=== PATIENT | male | born 1945 | race Caucasian/White ===

== ENCOUNTER → 2017-12-13 | Outpatient (CLI) | payer MEDICARE | END | disposition home or self-care (01) | LOC: OIH 13:20 | PROVIDERS: ATTEND Internal Medicine | DX: M47.26 Other spondylosis with radiculopathy, lumbar region (principal) | CPT/HCPCS: 72110 ==

== ENCOUNTER → 2020-04-14 | Outpatient (CLI) | payer MEDICARE | END | disposition home or self-care (01) | LOC: SHCH 14:39 | PROVIDERS: ATTEND Internal Medicine Cardiovascular Disease | DX: R60.0 Localized edema (principal) | CPT/HCPCS: 93970 ==

== ENCOUNTER 2020-05-23 10:00 | Observation (INO) | payer MEDICARE ==
[~2020-05-23] VITALS: Ht 182.9 cm; Wt 114.7 kg
[2020-05-23 09:46] VITALS: BP 158/78
[2020-05-23 11:09] LABS: BASOPHILS % (AUTO) 0.2 % (0.0-5.0); EOSINOPHILS % (AUTO) 1.9 % (0.0-8.0); HEMATOCRIT 41.8 % (42-54); LYMPHOCYTES % (AUTO) 18.1 % (21.0-51.0); MEAN CORPUSCULAR HEMOGLOBIN 32.4 pg (27.0-33.0); MEAN CORPUSCULAR VOLUME 95.4 fL (79-99); MONOCYTES % (AUTO) 9.8 % (3.0-13.0); NEUTROPHILS % (AUTO) 69.8 % (40.0-77.0); PLATELET COUNT (AUTO) 218 K/uL (130-400); RED BLOOD CELL COUNT(AUTO) 4.38 MIL/uL (4.50-6.20); RED CELL DISTRIBUTION WIDTH 12.8 % (11.0-15.5); WHITE BLOOD COUNT (AUTO) 5.2 K/uL (4.8-10.8)
[2020-05-23 12:24] LABS: CREATININE 1.8 mg/dL (0.5-1.5); POTASSIUM 4.5 mmol/L (3.5-5.1)
[2020-05-25] MEDS ORDERED: HYDR25TA PO (12:28)
[2020-05-25] MEDS ORDERED: DOCU-272 PO (12:28)
[2020-05-25] MEDS ORDERED: LOSA100T58 PO (12:28)
[2020-05-25] MEDS ORDERED: CHOL200013 PO (12:28)
[2020-05-25] MEDS ORDERED: KETO15CR2 TP (12:28)
[2020-05-25] MEDS ORDERED: GLIM4TAB36 PO (12:28)
[2020-05-25] MEDS ORDERED: HYDR100T27 PO (12:28)
[2020-05-25] MEDS ORDERED: NEBI10TA PO (12:28)
[2020-05-25] MEDS ORDERED: AMLO10TA7 PO (12:28)
[2020-05-25] MEDS ORDERED: AEC81 PO (12:28)
[2020-05-25] MEDS ORDERED: INSU100I3 SQ ×3 (12:28)
[2020-05-25] MEDS ORDERED: INSU100I24 SQ (12:28)
[2020-05-26] VITALS (25 sets, daily range): BP systolic 117–195; BP diastolic 44–82
[2020-05-26] MEDS ORDERED: SODIUM CHLORIDE 0.9% 1000ML 1,000 ML IV ONE (06:39)
[2020-05-26] MEDS ORDERED: CEFAZOLIN SODIUM 1 GM VIAL ONE ×2 (06:39→06:44)
[2020-05-26] MEDS ORDERED: BUPIVACAINE/EPI/PF 0.25% 30ML VIAL IJ ONE (06:44)
[2020-05-26] MEDS ORDERED: DURAMORPH PF1 MG/ML 10ML AMP IV ONE (06:44)
[2020-05-26] MEDS ORDERED: THROMBIN-JMI 20000 UNIT KIT TP ONE (06:44)
[2020-05-26] MEDS ORDERED: SCOPOLAMINE HYDROBROMIDE 1 EACH ADH..PATCH TD ONE (07:10)
[2020-05-26] MEDS ORDERED: LIDOCAINE PF 2% 5ML ABBOJECT ONE (07:14)
[2020-05-26] MEDS ORDERED: SUCCINYLCHOLINE CHLORIDE 20 MG/ML 10 ML VIAL ONE (07:14)
[2020-05-26] MEDS ORDERED: MIDAZOLAM HCL 1 MG/ML 2ML VIAL ONE (07:15)
[2020-05-26] MEDS ORDERED: GLYCOPYRROLATE 1 MG/5 ML SYRINGE ONE (07:15)
[2020-05-26] MEDS ORDERED: PROPOFOL 10 MG/ML 20ML VIAL IV ONE (07:15)
[2020-05-26] MEDS ORDERED: DEXAMETHASONE SOD PHOSPHATE 10MG/ML 1ML VIAL ONE (07:15)
[2020-05-26] MEDS ORDERED: NEOSTIGMINE 5MG/5ML SYR IV ONE (07:16)
[2020-05-26] MEDS ORDERED: FENTANYL CITRATE PF 50 MCG/1 ML 2ML VIAL ONE (07:16)
[2020-05-26] MEDS ORDERED: ROCURONIUM 10MG/1ML SYR 10 MG/ML ML ONE ×2 (07:16→08:15)
[2020-05-26] MEDS ORDERED: ONDANSETRON HCL 4 MG/2 ML VIAL ONE (07:16)
[2020-05-26] MEDS: CEFAZOLIN SODIUM 1 GM VIAL IVP ONE ×2 (07:16→07:40)
[2020-05-26] MEDS ORDERED: HETASTARCH IN 0.9 % NACL 500 ML IV ONE (07:51)
[2020-05-26] MEDS ORDERED: PHENYLEPHRINE HCL 10 MG/ML 1ML VIAL IV ONE (07:53)
[2020-05-26] MEDS ORDERED: EPHEDRINE SULFATE 50 MG/ML AMPULE ONE (07:53)
[2020-05-26] MEDS: LACTATED RINGERS 1000ML 1,000 ML IV SCH ×2 (12:07→23:22)
[2020-05-26] MEDS ORDERED: MORPHINE SULFATE 2 MG/ML 1ML SYG IVP PRN (12:15)
[2020-05-26] MEDS: CEFAZOLIN SODIUM 1 GM VIAL IVP SCH ×2 (12:15→21:19)
[2020-05-26] MEDS ORDERED: PROMETHAZINE HCL 25 MG/ML 1ML AMPULE IM PRN (12:15)
[2020-05-26] MEDS: DEXAMETHASONE SOD PHOSPHATE 4 MG/ML 1ML VIAL IVP SCH ×3 (12:15→23:41)
[2020-05-26] MEDS ORDERED: SODIUM CHLORIDE 0.9% 10 ML VIAL IVP PRN (12:15)
--- NOTE | 2020-05-26 13:35 | NUR ---
PROCEDURE REPORT RECEIVED FROM PABLITO RN (PACU). PATIENT S/P LUMBAR DECOMPRESSION BY DR. MURPHY. VIVIAN AND LIMA IN PLACE. DRESSING TO LUMBAR DRY AND INTACT. DO NOT USE RIGHT ARM FOR BLOOD PRESSURE CHECKS DUE TO EDEMA NOTED. PATIENT STABLE AT THIS TIME.
--- NOTE | 2020-05-26 16:36 | NUR ---
[id number] patient signed VELASQUEZ Letter, I faxed VELASQUEZ Letter to [phone] and placed in chart under consent tab.
[2020-05-26] MEDS ORDERED: KETOCONAZOLE 15 GM CREAM.GM. TP SCH (19:45)
--- NOTE | 2020-05-26 20:05 | NUR ---
ACTIVITY AMBULATED IN THE HALLWAY STEADY GAIT, NO SOB, NO C;O Pain at this time, dressing lumbar area intact, j/p to bulb suction with small amount of seros sanguinous drainage f/.c to gravity drainage with clear yellow urine, call agarwal at reach
[2020-05-26] MEDS ORDERED: GLUCAGON 1MG KIT 1 MG ML IM PRN (20:15)
[2020-05-26] MEDS ORDERED: DEXTROSE 50%-WATER 50 ML DISP.SYRIN IV PRN (20:15)
[2020-05-26] MEDS: HYDRALAZINE HCL 25 MG TABLET PO SCH (21:00)
[2020-05-26] MEDS: INSULIN DEGLUDEC 20 UNIT SQ SCH (21:00)
--- NOTE | 2020-05-26 21:00 | NUR ---
activity ambulated around nurses station , tolerated well, back to bed ,,,, call agarwal at reach
[2020-05-26] MEDS: INSULIN HUMULIN R 100 UNIT/ML 3ML SQ SCH (21:26)
[2020-05-27] VITALS: BP 155/58
[2020-05-27 03:36] VITALS: BP 155/56
[2020-05-27] MEDS: CEFAZOLIN SODIUM 1 GM VIAL IVP SCH (04:15)
--- NOTE | 2020-05-27 06:00 | NUR ---
f/c f/c discontinued as ordered, tolerated well, dtv, instruct patient to call nurse when urge to void, patient verbalizes understanding via teach back, call agarwal at reach
[2020-05-27] MEDS: DEXAMETHASONE SOD PHOSPHATE 4 MG/ML 1ML VIAL IVP SCH (06:03)
[2020-05-27] MEDS: INSULIN HUMULIN R 100 UNIT/ML 3ML SQ SCH ×4 (06:10→20:18)
--- NOTE | 2020-05-27 06:15 | NUR ---
activity ambulated in the hallway with assistance, slight weakness to ble , back to bed, tolerated well
--- NOTE | 2020-05-27 06:32 | NUR ---
md round dr. washington to see and examen patient, per dr. washington wants patient to stay in hospital for 2 more days due to unsteady gait and patient lives alone, unsafe to discharge now per dr. washington, inform dr. pretty in the morning regarding dr. washington recommemndations, per dr. washington can transfer services to him if dr. pretty agrees
--- NOTE | 2020-05-27 07:20 | NUR ---
NEUROSURGERY DR. MURPHY IN TO SEE PATIENT. HAS AGREED TO ALLOW PATIENT TO BE IN HOSPITAL UNTIL DR. GELLER IS READY TO DISCHARGE HIM.
[2020-05-27 08:10] VITALS: BP 152/63
[2020-05-27] MEDS: INSULIN LISPRO 100 UNIT/ML 3ML SQ SCH (08:15)
[2020-05-27] MEDS: DOCUSATE SODIUM 100 MG CAP PO PRN ×2 (08:36→19:41)
[2020-05-27] MEDS: AMLODIPINE BESYLATE 5 MG TAB PO SCH (08:37)
[2020-05-27] MEDS: ASPIRIN 81 MG EC TAB PO SCH (08:37)
[2020-05-27] MEDS: HYDROCHLOROTHIAZIDE 25 MG TABLET PO SCH (08:37)
[2020-05-27] MEDS: LOSARTAN 100 MG TABLET PO SCH (08:37)
[2020-05-27] MEDS: NEBIVOLOL HCL 10 MG PO SCH (08:39)
[2020-05-27] MEDS: HYDRALAZINE HCL 25 MG TABLET PO SCH ×3 (08:39→19:42)
[2020-05-27] MEDS: CHOLECALCIFEROL 50 MCG PO SCH (08:39)
[2020-05-27] MEDS ORDERED: GLIMEPIRIDE 2 MG TABLET PO SCH (09:00)
[2020-05-27 11:32] VITALS: BP 146/57
[2020-05-27] MEDS ORDERED: INSULIN LISPRO 100 UNIT/ML 3ML SQ SCH ×2 (12:00→17:00)
--- NOTE | 2020-05-27 13:13 | NUR ---
DCP CM spoke to pt discussed DC plans. Pt is independent prior to surgery, lives at home alone. Has a cane he uses on and off. Denies any other equipments/services. Feels safe to go back home, still drives, arranges own needs, pt states he has a friend who is able to assist with transportation as necessary. Denies any other equipments/services. DC plan to home once stable. CM to cont to follow up. Addendum: 05/27/20 at 1314 by ALVARO EAST LVN CM Amended: Links added.
[2020-05-27] MEDS ORDERED: ACETAMINOPHEN EXTRA STRENGTH 500 MG TABLET PO PRN (15:30)
[2020-05-27] MEDS: HYDROCODONE/ACETAMINOPHEN 5/325 MG TAB PO PRN ×2 (16:14→21:00)
[2020-05-27 16:54] VITALS: BP 147/58
[2020-05-27] MEDS: GLIMEPIRIDE 2 MG TABLET PO SCH (17:26)
[2020-05-27] MEDS: INSULIN DEGLUDEC 20 UNIT SQ SCH (19:01)
[2020-05-27 19:48] VITALS: BP 125/59
[2020-05-28 00:05] VITALS: BP 141/62
[2020-05-28 04:00] VITALS: BP 137/61
[2020-05-28] MEDS: HYDROCODONE/ACETAMINOPHEN 5/325 MG TAB PO PRN ×2 (05:06→12:46)
[2020-05-28] MEDS: INSULIN HUMULIN R 100 UNIT/ML 3ML SQ SCH ×2 (06:17→11:30)
[2020-05-28] MEDS: INSULIN LISPRO 100 UNIT/ML 3ML SQ SCH (08:00)
[2020-05-28 08:35] VITALS: BP 163/71
[2020-05-28] MEDS: CHOLECALCIFEROL 50 MCG PO SCH (09:00)
[2020-05-28] MEDS: NEBIVOLOL HCL 10 MG PO SCH (09:00)
[2020-05-28] MEDS: LOSARTAN 100 MG TABLET PO SCH (10:16)
[2020-05-28] MEDS: HYDRALAZINE HCL 25 MG TABLET PO SCH (10:16)
[2020-05-28] MEDS: AMLODIPINE BESYLATE 5 MG TAB PO SCH (10:19)
[2020-05-28] MEDS: ASPIRIN 81 MG EC TAB PO SCH (10:19)
[2020-05-28] MEDS: GLIMEPIRIDE 2 MG TABLET PO SCH (10:20)
[2020-05-28] MEDS: HYDROCHLOROTHIAZIDE 25 MG TABLET PO SCH (10:20)
[2020-05-28 11:16] VITALS: BP 135/94
--- NOTE | 2020-05-28 14:30 | NUR ---
NOTE DSICHARGE INSTRUCTIONS GIVEN TO PATIENT AT THIS TIME. VERBALIZED UNDERSTANDING. HE DECIDED NOT TO STAY AND GET PLACED IN SNF. HE IS S/P LUMBAR LAMINECTOMY POD 2. DRESSING TO LUMBAR AREA D/I. BOBBY ALL SECURED IN PLACE AND SLIGHT DRAINAGE NOTED FROM DRAIN INSERTION SITE. HE HAS BEEN WALKING IN THE [place] WITHOUT ASSISTANCE AND HE USES CANE. DR JEFFREY SHEEHAN HAS SET UP HOME HEALTH FOR HIM TO DO DRESSING CHANGES. DRESSING CHANGED PRIOR TO DISCHARGE. PATIENT MEDICATED FOR PAIN EARLIER WELL TO TOLERATE TRAVELING HOME.
== END 2020-05-28 15:16 | disposition home or self-care (01) ==
LOC: EDSTATUS 10:00 → DAHIP 05-26 05:58 → 3DH 05-26 14:10
PROVIDERS: ADMIT Internal Medicine; ATTEND Internal Medicine
DX: M48.061 Spinal stenosis, lumbar region without neurogenic claudication (principal); I25.10 Atherosclerotic heart disease of native coronary artery without angina pectoris; I87.2 Venous insufficiency (chronic) (peripheral); E11.9 Type 2 diabetes mellitus without complications; I10 Essential (primary) hypertension; M72.2 Plantar fascial fibromatosis; N28.9 Disorder of kidney and ureter, unspecified
CPT/HCPCS: 36415; 63047; 63048 ×3; 71045; 72020; 80048; 82948 ×10; 85025; 96374; 96375; 96376 ×2; 97161; A4213; A4215; A4221; A4222; A4223; A4344; A4510; A4600; A4649 ×5; A4663; G0378 ×21; G8978; G8979; G8980; G8981; G8982; G8983; J0330; J0690 ×5; J1100 ×4; J1815 ×3; J2001; J2250; J2274; J2370; J2405; J2704; J2710; J3010; J3490 ×4; J7030 ×2; U0003

== ENCOUNTER → 2020-07-20 | Outpatient (CLI) | payer MEDICARE ==
[~2020-07-20] MED LIST: AEC81 PO; ALBUTEROL SULFATE 0.083% 2.5 MG/3 ML INH IH ONE; AMLO10TA7 PO; CHOL200013 PO; DOCU-272 PO; GLIM4TAB36 PO; HYDR100T27 PO; HYDR25TA PO; INSU100I24 SQ; INSU100I3 SQ; KETO15CR2 TP; LOSA100T58 PO; NEBI10TA PO
== END | disposition home or self-care (01) ==
LOC: RESP 12:58
PROVIDERS: ATTEND Internal Medicine Cardiovascular Disease
DX: J44.9 Chronic obstructive pulmonary disease, unspecified (principal)
CPT/HCPCS: 94060; 94727; 94729

== ENCOUNTER → 2021-03-10 | Outpatient (CLI) | payer MEDICARE ==
[~2021-03-10] MED LIST changes: -ALBUTEROL SULFATE 0.083% 2.5 MG/3 ML INH IH ONE; +AMLO-258 PO; -AMLO10TA7 PO
== END | disposition home or self-care (01) ==
LOC: RAH 08:26
PROVIDERS: ATTEND Internal Medicine
DX: N18.32 Chronic kidney disease, stage 3b (principal)
CPT/HCPCS: 76770; 93975

== ENCOUNTER 2021-11-18 21:57 | Emergency (ER) | payer MEDICARE ==
[~2021-11-18] VITALS: Ht 185.4 cm; Wt 110.2 kg
[~2021-11-18 21:57] MED LIST changes: -DOCU-272 PO; +DOCU-280 PO
[2021-11-18] MEDS ORDERED: TETRACAINE HCL 0.5% 4 ML OPHTH SOLN OS ONE (23:00)
[2021-11-19 00:26] VITALS: BP 182/76
[2021-11-20] MEDS ORDERED: CLOP75TA14 PO (17:52)
== END 2021-11-19 00:45 | disposition home or self-care (01) ==
LOC: EDH 21:57
DX: H54.62 Unqualified visual loss, left eye, normal vision right eye (principal); E11.9 Type 2 diabetes mellitus without complications; E78.00 Pure hypercholesterolemia, unspecified; I10 Essential (primary) hypertension; Z79.4 Long term (current) use of insulin; Z79.82 Long term (current) use of aspirin; Z79.899 Other long term (current) drug therapy; Z90.49 Acquired absence of other specified parts of digestive tract
CPT/HCPCS: 99282

== ENCOUNTER → 2021-12-11 | Outpatient (CLI) | payer MEDICARE ==
[~2021-12-11] MED LIST changes: +CLOP75TA14 PO
== END | disposition home or self-care (01) ==
LOC: RAH 09:38
PROVIDERS: ATTEND Internal Medicine
DX: I67.2 Cerebral atherosclerosis (principal); H34.232 Retinal artery branch occlusion, left eye; H54.62 Unqualified visual loss, left eye, normal vision right eye; I65.21 Occlusion and stenosis of right carotid artery; R09.89 Other specified symptoms and signs involving the circulatory and respiratory systems
CPT/HCPCS: 70551; 93880